=== PATIENT | male | born 1970 | race Caucasian/White ===

== ENCOUNTER 2021-08-06 01:05 | Emergency (ER) | payer OTHER ==
[~2021-08-06] VITALS: Ht 180.3 cm; Wt 65.8 kg
[~2021-08-06 01:05] MED LIST: METOPROLOL TART25 MG PO; OMEPRAZOLE40 MG PO; PRINIVIL10 MG PO; VITAMIN B-1100 M1 PO
[2021-08-06 01:08] VITALS: BP 151/100
== END 2021-08-06 02:00 | disposition home or self-care (01) ==
LOC: ER 01:05
DX: F10.229 Alcohol dependence with intoxication, unspecified (principal); I10 Essential (primary) hypertension; Z79.891 Long term (current) use of opiate analgesic; Z79.899 Other long term (current) drug therapy; Y90.9 Presence of alcohol in blood, level not specified